=== PATIENT | male | born 2000 | race African-American/Black ===

== ENCOUNTER 2021-03-25 21:53 | Emergency (ER) | payer OTHER ==
[2021-03-25 22:16] VITALS: BP 136/75
--- NOTE | 2021-03-25 22:31 | ED Physician Documentation ---
PD HPI UPPER EXT INJURY - Stated complaint Stated Complaint: L FINGER LAC - Chief complaint Chief Complaint: Laceration - History obtained from History obtained from: Patient (Right-handed gentleman who is up-to-date on tetanus cut his left index finger with a knife while opening something just prior to arrival.) Review of Systems Constitutional: reports: Reviewed and negative Eyes: reports: Reviewed and negative Ears: reports: Reviewed and negative PD PAST MEDICAL HISTORY - Allergies Allergies/Adverse Reactions: Allergies Allergy/AdvReac Type Severity Reaction Status Date / Time nickel Allergy Unknown Verified 03/25/21 22:12 Mosquito Allergy Unknown Uncoded 03/25/21 22:12 PD ED PE NORMAL - Vitals Vital signs reviewed: Yes - General General: Alert and oriented X 3, No acute distress - Extremities Extremities: Other (1 cm shallow laceration on the pad of the left index finger without neurovascular compromise.) - Neuro Neuro: Alert and oriented X 3, Normal speech Results - Vitals Vitals: Vital Signs - 24 hr 03/25/21 22:05 Temperature 36.3 C L Heart Rate 77 Respiratory 19 Rate Blood Pressure 136/75 H O2 Saturation 97 Oxygen O2 Source Room air Procedures - Laceration (location) L index finger Length in cm: 1 Wound type: Linear, Into subcut fat Neurovascular status: Sensory intact, Motor intact, Vascular intact Anesthesia: Lidocaine 1%, With bicarb Wound preparation: Irrigated copiously NS Skin layer closure: Nylon, Interrupted, Size #-0 - enter number (5-0), Sutures - enter # (3) Other: Tetanus UTD Departure - Departure Disposition: 01 Home, Self Care Clinical Impression: Laceration Condition: Good Record reviewed to determine appropriate education?: Yes Instructions: ED Laceration Hand Comments: Come back for any signs of infection which would include: Redness, swelling, drainage, increased pain, or fevers. You can wash it soap and water. Keep it covered and moist with bacitracin ointment which is available over the counter; avoid neosporin. Follow-up with your physician in About 14 days for suture removal. Forms: Activity restrictions
[2021-03-25] MEDS ORDERED: BUFFERED LIDOCAINE 10 ML SYRINGE SUBQ STA (22:37)
== END 2021-03-25 23:12 | disposition home or self-care (01) ==
LOC: ED 21:53
DX: S61.211A Laceration without foreign body of left index finger without damage to nail, initial encounter (principal); W26.0XXA Contact with knife, initial encounter; Y93.89 Activity, other specified
CPT/HCPCS: 12001; 99282

== ENCOUNTER 2021-04-08 11:30 | Emergency (ER) | payer OTHER ==
[2021-04-08 11:39] VITALS: BP 130/76
--- NOTE | 2021-04-08 11:53 | ED Physician Documentation ---
History of Present Illness - Stated complaint Stated Complaint: STITCH REMOVAL - Chief complaint Chief Complaint: Laceration - History obtained from History obtained from: Patient - History of Present Illness Pain level max: 0 Pain level now: 0 - Additonal information Additional information: Patient is a 20-year-old male here for suture removal from his left index finger. This was repaired here about 2 weeks ago. No redness, no drainage, no bleeding. No signs of infection. Review of Systems Constitutional: denies: Fever PD PAST MEDICAL HISTORY - Present Medications Home Medications: Ambulatory Orders Medication Instructions Recorded Confirmed No Known Home Medications 04/08/21 04/08/21 - Allergies Allergies/Adverse Reactions: Allergies Allergy/AdvReac Type Severity Reaction Status Date / Time nickel Allergy Unknown Verified 04/08/21 11:40 Mosquito Allergy Unknown Uncoded 03/25/21 22:12 PD ED PE NORMAL - Vitals Vital signs reviewed: Yes - General General: Alert and oriented X 3, No acute distress - Derm Derm: Warm and dry - Extremities Extremities: Other (3 sutures in left index finger. No signs of infection. Well-healed) - Neuro Neuro: Alert and oriented X 3 Results - Vitals Vitals: Vital Signs - 24 hr 04/08/21 11:36 Temperature 36.9 C Heart Rate 83 Respiratory 16 Rate Blood Pressure 130/76 O2 Saturation 97 Oxygen O2 Source Room air Procedures - Suture/staple Removal (location) Left index finger Suture/staple removal: # sutures, No complications, Other (All sutures removed. No complications.). No: Infected, Dehiscence PD MEDICAL DECISION MAKING - ED course Complexity details: considered differential, d/w patient ED course: Sutures removed. Warnings of infection and instructions on wound care given at bedside. Also counseled on how to minimize scarring. Patient counseled regarding signs and symptoms for which I believe and urgent re-evaluation would be necessary. Patient with good understanding of and agreement to plan and is comfortable going home at this time This document was made in part using voice recognition software. While efforts are made to proofread this document, sound alike and grammatical errors may occur. Departure - Departure Disposition: 01 Home, Self Care Clinical Impression: Visit for suture removal Condition: Good Instructions: ED Wound Check Sutr Remove No Infec Follow-Up: your,doctor as needed [Other] Comments: Follow-up with your doctor as needed for further care. Return if you worsen. Your sutures were removed today Discharge Date/Time: 04/08/21 11:57
== END 2021-04-08 11:57 | disposition home or self-care (01) ==
LOC: ED 11:30
DX: S61.211D Laceration without foreign body of left index finger without damage to nail, subsequent encounter (principal); X58.XXXD Exposure to other specified factors, subsequent encounter
CPT/HCPCS: 99282

== ENCOUNTER 2022-08-13 12:27 | Emergency (ER) | payer OTHER ==
[2022-08-13 13:37] LABS: BASOPHILS # (AUTO) 0.1 10^3/uL (0.0-0.1); BASOPHILS % (AUTO) 1.4 %; EOSINOPHILS % (AUTO) 0.2 %; HCT - HEMATOCRIT 47.9 % (42.0-52.0); HGB - HEMOGLOBIN 15.8 g/dL (14.0-18.0); LYMPHOCYTES # (AUTO) 1.4 10^3/uL (1.5-3.5); LYMPHOCYTES % (AUTO) 28.5 %; MEAN CORPUSCULAR HEMOGLOBIN 29.7 pg (27.0-31.0); MEAN PLATELET VOLUME 8.5 fL (7.4-11.4); MONOCYTES # (AUTO) 0.6 10^3/uL (0.0-1.0); MONOCYTES % (AUTO) 11.8 %; NEUTROPHILS # (AUTO) 2.9 10^3/uL (1.5-6.6); NEUTROPHILS % (AUTO) 57.9 %; PLT - PLATELET COUNT 182 10^3/uL (130-450); RED BLOOD COUNT 5.32 10^6/uL (4.70-6.10); RED CELL DISTRIBUTION WIDTH 13.6 % (12.0-15.0); WHITE BLOOD COUNT 4.9 x10^3/uL (4.8-10.8)
[2022-08-13 13:39] LABS: BILIRUBIN,URINE NEGATIVE (NEGATIVE); GLUCOSE, URINE (UA) NEGATIVE (NEGATIVE); KETONES,URINE (UA) NEGATIVE (NEGATIVE); LEUKOCYTE ESTERASE, URINE NEGATIVE (NEGATIVE); NITRITE,URINE NEGATIVE (NEGATIVE); OCCULT BLOOD,URINE NEGATIVE (NEGATIVE); PROTEIN,URINE 100 mg/dL (NEGATIVE); UROBILINOGEN,URINE 1 (NORMAL) E.U./dL (NORMAL)
[2022-08-13 13:40] LABS: CLARITY,URINE CLEAR (CLEAR)
[2022-08-13 13:51] LABS: ALBUMIN 4.8 g/dL (3.2-5.5); ALBUMIN/GLOBULIN RATIO 1.3 (1.0-2.2); BILIRUBIN,TOTAL 0.5 mg/dL (0.2-1.0); CALCIUM 9.8 mg/dL (8.5-10.3); CREATININE 0.9 mg/dL (0.6-1.2); POTASSIUM 4.3 mmol/L (3.5-5.0); TOTAL PROTEIN 8.5 g/dL (6.7-8.2)
[2022-08-13 13:54] LABS: BACTERIA,URINE None Seen /HPF (None Seen); RBC,URINE 0-5 /HPF (0-5); SQUAMOUS EPITHELIAL CELL,UR NONE SEEN (<= Few); WBC,URINE 0-3 /HPF (0-3)
[2022-08-13 13:55] LABS: MUCUS,URINE Moderate Strands
[2022-08-13] MEDS ORDERED: ONDANSETRON 4 MG/2 ML VIAL IVP STA (14:36)
[2022-08-13] MEDS ORDERED: SODIUM CHLORIDE 0.9% 1,000 ML IV STA (14:36)
--- NOTE | 2022-08-13 16:03 | ED Physician Documentation ---
PD HPI ABD PAIN - Stated complaint Stated Complaint: ABD PX,VOMITING - Chief complaint Chief Complaint: Abd Pain - History obtained from History obtained from: Patient - Additional information Additional information: This is a 22-year-old male who has had about a month and a half of intermittent abdominal cramping, intermittent abdominal pain, nausea, poor p.o. intake. He was seen previously and states he had a CT scan that showed some mild colitis and he was scheduled for follow-up with GI though this is not until August 22. He is doing okay but has not been able to keep much solid food down over the course the last several weeks and had some increased pain today so presented to the ER. He is feeling somewhat better now but needs a note because he missed work today. He is tolerating p.o. fluids without difficulty, denies any diarrhea or constipation, no bloody stool, no dysuria or other urinary symptoms, no fever or chills. He cannot identify any triggers like particular foods, and denies any stress inducing symptoms. He has not traveled out of the country recently, no atypical foods, no new exposure to animals, No atypical water sources. He denies any marijuana use and has no history of cyclic vomiting. Review of Systems Ten Systems: 10 systems reviewed and negative (Except as noted in HPI) PD PAST MEDICAL HISTORY - Past Medical History Past Medical History: No Cardiovascular: None Respiratory: None Neuro: None Endocrine/Autoimmune: None GI: GERD : None HEENT: None Psych: None Musculoskeletal: Chronic back pain Derm: None - Past Surgical History Past Surgical History: Yes - Present Medications Home Medications: Ambulatory Orders Medication Instructions Recorded Confirmed Dicyclomine [Bentyl] 20 mg PO QID PRN #20 cap 08/13/22 Metoclopramide [Reglan] 10 mg PO Q6H PRN #30 tablet 08/13/22 Ondansetron HCl 4 mg PO Q4HR PRN 08/13/22 08/13/22 polyethylene glycoL 3350 17 gm PO DAILY PM 08/13/22 08/13/22 [Polyethylene Glycol 3350] - Allergies Allergies/Adverse Reactions: Allergies Allergy/AdvReac Type Severity Reaction Status Date / Time nickel Allergy Unknown Verified 08/13/22 13:08 Mosquito Allergy Unknown Uncoded 08/13/22 13:08 - Social History Does the pt smoke?: No Smoking Status: Never smoker Does the pt drink ETOH?: Yes Does the pt have substance abuse?: No - Immunizations Immunizations are current?: Yes PD ED PE NORMAL - Vitals Vital signs reviewed: Yes - General General: Alert and oriented X 3, No acute distress, Well developed/nourished - HEENT HEENT: Atraumatic, Moist mucous membranes, Pharynx benign - Neck Neck: Supple, no meningeal sign, No adenopathy, No JVD - Cardiac Cardiac: RRR, No murmur, No gallop, No rub - Respiratory Respiratory: No respiratory distress, Clear bilaterally - Abdomen Abdomen: Normal bowel sounds, Soft, Non tender, Non distended, No organomegaly - Back Back: No CVA TTP - Derm Derm: Normal color, Warm and dry, No rash - Neuro Neuro: Alert and oriented X 3 Eye Opening: Spontaneous Motor: Obeys Commands Verbal: Oriented GCS Score: 15 - Psych Psych: Normal mood, Normal affect Results - Vitals Vitals: Vital Signs - 24 hr 08/13/22 08/13/22 13:02 15:27 Temperature 37 C Heart Rate 94 76 Respiratory 16 16 Rate Blood Pressure 162/90 H 163/89 H O2 Saturation 97 100 Oxygen O2 Source Room air - Labs Labs: Laboratory Tests 08/13/22 08/13/22 08/13/22 13:11 13:33 13:33 WBC 4.9 RBC 5.32 Hgb 15.8 Hct 47.9 MCV 90.0 MCH 29.7 MCHC 33.0 RDW 13.6 Plt Count 182 MPV 8.5 Neut # (Auto) 2.9 Lymph # (Auto) 1.4 L Glenn # (Auto) 0.6 Eos # (Auto) 0.0 Baso # (Auto) 0.1 Absolute Nucleated RBC 0.00 Nucleated RBC % 0.0 Sodium 145 Potassium 4.3 Chloride 97 L Carbon Dioxide 33 H Anion Gap 15.0 H BUN 7 Creatinine 0.9 Estimated GFR (MDRD) 126 Glucose 107 H Calcium 9.8 Total Bilirubin 0.5 AST 49 H ALT 29 Alkaline Phosphatase 61 Total Protein 8.5 H Albumin 4.8 Globulin 3.7 Albumin/Globulin Ratio 1.3 Lipase 43 Urine Color YELLOW Urine Clarity CLEAR Urine pH 7.0 Ur Specific [place] 1.020 Urine Protein 100 H Urine Glucose (UA) NEGATIVE Urine Ketones NEGATIVE Urine Occult Blood NEGATIVE Urine Nitrite NEGATIVE Urine Bilirubin NEGATIVE Urine Urobilinogen 1 (NORMAL) Ur Leukocyte Esterase NEGATIVE Urine RBC 0-5 Urine WBC 0-3 Ur Squamous Epith Cells NONE SEEN Urine Bacteria None Seen Urine Mucus Moderate Strands Ur Microscopic Review INDICATED Urine Culture Comments NOT INDICATED PD MEDICAL DECISION MAKING - ED course Complexity details: reviewed results, re-evaluated patient, considered differential, d/w patient ED course: This is a very pleasant 22-year-old male who presents with generalized abdominal pain with focus is a pain on the left upper quadrant and right lower quadrant intermittently over the last several weeks as well as nausea and vomiting anytime he eats solid foods. Well-appearing on physical exam, patient is well hydrated and well-nourished. He has no peritoneal signs, abdomen is soft and nontender and there is no distention or rigidity. We obtained labs which are stable, he is mildly elevated CO2 and anion gap likely due to decreased p.o. intake this he was given a liter of fluid and Zofran. Patient is very well- appearing and I do not think additional CT scan is indicated at this time I recommended bland diet stick to primarily liquids which she is tolerating until follow-up with GI in about 10 days. He was given Bentyl to help with abdominal pain as well has metoclopramide if he needs for nausea. He still has Zofran available at home as well if needed as he has not been taking this. Recommended he keep a dietary log and avoid Dairy, gluten and meat until he sees his GI doctor. A note was provided for missed work today. Departure - Departure Disposition: 01 Home, Self Care Clinical Impression: Vomiting Qualifiers: Vomiting type: unspecified Nausea presence: with nausea Qualified Code(s): R11.2 - Nausea with vomiting, unspecified Condition: Good Instructions: ED Nausea Vomiting, ED Abdominal Pain Unkn Cause Male Prescriptions: Dicyclomine [Bentyl] 20 mg PO QID PRN #20 cap PRN Reason: Abdominal Pain Metoclopramide [Reglan] 10 mg PO Q6H PRN #30 tablet PRN Reason: Nausea / Vomiting Comments: As we discussed, your abdominal exam is reassuring and your labs are stable. I suspect you may have a dietary intolerance or irritable bowel syndrome resulting in your symptoms. Please adhere to a very bland diet over the course of the next week or 2 until you see the GI specialist, avoid dairy, meat, and gluten if possible. Keep a diet diary to determine if there are particular irritants. Stay well-hydrated and consider drinking protein shake if you are not able to tolerate much p.o. I have given you an additional nausea medication as well as a medication for abdominal cramping. If you develop a fever or new concerns, return to the ER. Your blood pressure is somewhat elevated today but needs to be rechecked and is can be done so at your primary care office or when you follow-up with a GI doctor. Forms: Activity restrictions
[2022-08-13 16:13] VITALS: BP 143/85
== END 2022-08-13 16:13 | disposition home or self-care (01) ==
LOC: ED 12:27
DX: R11.2 Nausea with vomiting, unspecified (principal); R10.12 Left upper quadrant pain; R10.31 Right lower quadrant pain
CPT/HCPCS: 36415; 80053; 81001; 81003; 83690; 85025; 87086; 96374; 99284

== ENCOUNTER 2022-10-15 18:38 | Outpatient (CLI) | payer OTHER | END 2022-10-15 18:39 | disposition EMS.NT | LOC: EMS 18:38 | DX: Z72.89 Other problems related to lifestyle (principal) ==